=== PATIENT | female | born 1990 | race Caucasian/White ===

== ENCOUNTER 2020-05-16 00:18 | Outpatient (CLI) | payer OTHER, MEDICARE, SELFPAY ==
[2020-05-16 19:30] LABS: SARS-CoV-2 RNA PCR Negative
== END 2020-05-16 00:19 | disposition home or self-care (01) ==
LOC: ANHCOVIDDT 00:18
PROVIDERS: PCP Physician Assistant; Visit Provider Obstetrics & Gynecology
DX: Z01.812 Encounter for preprocedural laboratory examination (principal); Z20.828 Contact with and (suspected) exposure to other viral communicable diseases
CPT/HCPCS: 87635; C9803; U0003

== ENCOUNTER 2020-05-19 00:41 | Day surgery (SDC) | payer OTHER, MEDICARE, SELFPAY ==
[2020-05-06 13:29] VITALS: BMI 38.0
--- NOTE | 2020-05-18 09:53 | P.PNAN_ITS ---
Anes - Initial Pre Proc Eval Procedure: Operation Date: 05/19/20 07:30 Proposed Procedures p Laparoscopic Bilateral Tubal Sterilization with Fulguration - Yvette Rich MD Date/Time: 05/18/20 09:53 Surgeon: Yvette Rich MD Pre Op Diagnosis: female sterilization Patient Data Age: 29 Gender: F Height: 1.73 m Weight: 113.4 kg Allergies Allergy/AdvReac Type Severity Reaction Status Date / Time Penicillins Allergy Severe throat Verified 05/19/20 06:46 very scratchy/itchy, hives WATERMELON Allergy Severe Anaphylactic Uncoded 05/19/20 06:46 Shock Home Medications Medication Instructions Recorded Confirmed Type albuterol sulfate [ProAir HFA] 1 inh INHALATION QID PRN 05/06/20 05/19/20 History buprenorphine-naloxone [Zubsolv] 1 tablet SUBLINGUAL DAILY 05/06/20 05/19/20 History cholecalciferol (vitamin D3) 25 mcg PO DAILY 05/06/20 05/19/20 History [Vitamin D3] cyanocobalamin (vitamin B-12) 1,000 mcg PO DAILY 05/06/20 05/19/20 History [Vitamin B-12] levonorgestrel [Mirena] 1 device INTRAUTERINE ONCE 05/06/20 05/06/20 History lurasidone [Latuda] 20 mg PO HS 05/06/20 05/19/20 History multivitamin 1 tablet PO DAILY 05/06/20 05/19/20 History polyethylene glycol 3350 [Miralax] 17 g PO DAILY 05/06/20 05/19/20 History Patient hx anesthesia problems: none Family hx anesthesia problems: none [facility] [place] Past Medical History Medical History (Updated 05/19/20 @ 06:50 by Yovani Fisher DO) Anxiety Asthma Bipolar disorder Chronic, continuous use of opioids quit 2 years ago, on suboxone now Depression Seizure Social History Social History Smoking packs per day: 1 Smoking cigarettes per day: 20.0 Years smoked: 12 Smoking pack-years: 12.00 Tobacco type: e-cigarettes/vaping Additional smoking assessment comments: QUIT CIGARETTES 1 MONTH AGO, NOW VAPES Substance use: former Substance use type: heroin, painkillers and IV drugs Other substance usage details: USES MEDICAL MARIJUANA CURRENTLY Last use: 2 YEARS AGO Spiritual care concerns: No Anes - Eval Final PreProcedure Day of Procedure 05/18/20 09:53 Patient weight: obese Heart: regular rate and rhythm Lungs: clear to auscultation and normal air movement Airway: Mallampati scale class II Neurological: alert and oriented Last oral intake: >/= 8 hours ASA classification: III Emergent: no Anesthetic plan: proceed Anesthesia type and monitoring: general ETT and standard monitoring Informed Consent: The patient's anesthetic plan and its attendant risks and benefits were discussed with the patient/family/POA. Questions were solicited and answers provided to the satisfaction of the patient/family/POA.
[2020-05-19] VITALS (10 sets, daily range): BP systolic 111–154; BP diastolic 62–77; PULSE 51–63; RESP 13–22; TEMP 36.1–36.2; O2SAT 98–100
[2020-05-19] MEDS: ACETAMINOPHEN 500 MG TABLET 1000 MG PO (06:21)
[2020-05-19] MEDS: KETOROLAC 15 MG/ML VIAL (*BKC) IV PUSH (06:38)
[2020-05-19] MEDS: LACTATED RINGERS 1,000 ML 30 ML IV CONT (06:38)
--- NOTE | 2020-05-19 07:15 | WPDHPUPDATE1 ---
History and Physical Update Update Date/Time: 05/19/20 07:15 History and Physical has been reviewed, including an updated exam of the patient. There are NO changes in the patient's condition. Risks, benefits, and alternatives have been discussed and questions answered. Patient agrees to proceed with procedure.
[2020-05-19] MEDS: KETOROLAC 30 MG/ML VIAL (*BKC) 15 MG IV PUSH (07:57)
--- NOTE | 2020-05-19 08:09 | PM.PROC ---
Procedure Note - Detailed Date of procedure: 05/19/20 Pre-op diagnosis: female sterilization Post-op diagnosis: same Procedure performed: Laparoscopic bilateral tubal ligation Description of procedure: Patient was taken the operating room. She has prepped draped in the dorsal lithotomy position after induction of general anesthesia. A 5 mm abdominal incision was made in left upper quadrant of the abdomen with scalpel. A 5 mm trocars inserted the intra-abdominal cavity under direct visualization of the scope. Pneumoperitoneum was achieved. A 5 mm periumbilical incision was made using a scalpel on the abdominal scan. A 5 mm trocar was inserted the intra-abdominal cavity under visualization of the scope. The fallopian tube was grasped with the bipolar cautery in the ampullary region. It was completely desiccated in a 1.5 cm area of the fallopian tube. This was performed in identical fashion on the contralateral side. The instruments were withdrawn. The pneumoperitoneum was reduced. The trocars were removed. The skin was closed with subcuticular 4 Monocryl. This incisions were covered with Dermabond. The patient tolerated the procedure well. She was taken to recover room in stable condition. Anesthesia: GETA Surgeon: Yvette Rich MD Estimated blood loss (mL): 10 Drains: No Packing: No Pathology: none sent Complications: No immediate complications Condition: stable Disposition: PACU Findings: Normal female pelvic anatomy.
[2020-05-19] MEDS: ONDANSETRON INJ 4 MG/2 ML VIAL IV PUSH (08:28)
== END 2020-05-19 10:10 | disposition home or self-care (01) ==
PROVIDERS: PCP Physician Assistant; Visit Provider Obstetrics & Gynecology
PROC: (CPT 58671; principal; 2020-05-19 07:30)
DX: Z30.2 Encounter for sterilization (principal)
CPT/HCPCS: 58670; A9270; J0330; J1100; J1885; J2250; J2405; J2704; J3010; J7120

== ENCOUNTER 2021-02-10 11:22 | Outpatient (CLI) | payer OTHER, MEDICARE, SELFPAY ==
--- NOTE | ~2021-02-10 | XR_ITS ---
EXAMINATION: XR hip LT min 2V DATE: 02/10/2021 11:41 INDICATION: Left hip pain. TECHNIQUE: 2 views of left hip were obtained. COMPARISON: None. FINDINGS: Bone alignment is normal. No fracture. There is mild left hip osteoarthritis. IMPRESSION: 1. Mild left hip osteoarthritis. Reviewed, dictated and finalized at location A.
== END 2021-02-10 11:23 | disposition home or self-care (01) ==
LOC: CHSIMG 11:26
PROVIDERS: PCP Physician Assistant; Visit Provider Physician Assistant
DX: M25.552 Pain in left hip (principal)
CPT/HCPCS: 73502

== ENCOUNTER 2021-11-30 18:54 | Emergency (ER) | payer OTHER, MEDICARE, SELFPAY ==
[2021-11-30 19:05] VITALS: BP 138/73; PULSE 66; RESP 16; TEMP 36.6; O2SAT 97
--- NOTE | 2021-11-30 19:50 | ED.URI ---
HPI - URI/Sore Throat General Chief Complaint: Upper Respiratory Infection Stated Complaint: tastes bleach when coughing Time Seen by Provider: 11/30/21 18:56 Source: patient, RN notes reviewed and old records reviewed Mode of arrival: ambulatory Limitations: no limitations History of Present Illness MD elicited complaint: cough, sore throat and nasal congestion Onset (ago): day(s) (1) Consistency: constant Severity: mild Pain scale (0-10): 0 Able to tolerate fluids by mouth: Yes Exacerbating factors: nothing Relieving factors: OTC cold medicine Associated symptoms: nasal congestion, sore throat and shortness of breath Treatments prior to arrival: cold medicine Related Data Home Medications Medication Instructions Recorded Confirmed Latuda 20 mg PO HS 05/06/20 11/30/21 Mirena 1 device INTRAUTERINE ONCE 05/06/20 11/30/21 Zubsolv 1 tablet SUBLINGUAL DAILY 05/06/20 11/30/21 albuterol sulfate [ProAir HFA] 1 inh INHALATION QID PRN 05/06/20 11/30/21 Allergies Allergy/AdvReac Type Severity Reaction Status Date / Time Penicillins Allergy Severe throat Verified 11/30/21 19:22 very scratchy/itchy, hives WATERMELON Allergy Severe Anaphylactic Uncoded 05/19/20 06:46 Shock Review of Systems Review of Systems: All systems reviewed & are unremarkable except as noted in HPI and below PMFSH Past Medical History Medical History Anxiety Asthma Bipolar disorder Chronic, continuous use of opioids quit 2 years ago, on suboxone now Depression Seizure URI (upper respiratory infection) Social History Social History Smoking packs per day: 1 Smoking cigarettes per day: 20.0 Years smoked: 12 Smoking pack-years: 12.00 Tobacco type: e-cigarettes/vaping Additional smoking assessment comments: QUIT CIGARETTES 1 MONTH AGO, NOW VAPES Substance use: former Substance use type: heroin, painkillers and IV drugs Other substance usage details: USES MEDICAL MARIJUANA CURRENTLY Last use: 2 YEARS AGO Spiritual care concerns: No Exam Const: General: no acute distress and alert Nutritional Appearance: well nourished Orientation/consciousness: patient oriented x3 Limitations: no limitations HENMT: Head: normal to inspection Ears: external ears normal and EAC's normal General nose exam: Normal external nose present and Normal nares present Face and sinus: sinuses nontender Mouth: Yes moist mucous membranes Eyes: Conjunctivae: conjunctivae normal Pupils: Equal, round and reactive pupils present EOM: EOMs intact bilaterally Neck: Neck: normal visual inspection and no lymphadenopathy Chest: Chest palpation & inspection: normal inspection of the chest Resp: Effort & Inspection: normal respiratory effort Auscultation: rhonchi Cardio: Rate: regular rate Rhythm: regular rhythm GI: GI Palp: Yes Soft to palpation and No Tenderness to palpation present (GI) Auscultation: normal bowel sounds : General: Yes bladder normal to palpation and Yes no CVA tenderness Back/Spine/Pelvis: Back: no CVA tenderness Skin: General skin exam: normal color Rashes: no rashes Neuro: General: moves all extremities, no meningeal signs, no focal motor deficits and CN's II-XI intact bilaterally Extrem: General: normal to inspection and no pedal edema Psych: Appearance: grossly normal Mental Status: mental status grossly normal Affect: normal affect Thought content: Yes Normal thought content present Course Course Emergency Course: Pt was improved in the ED. Reevaluation(s) Reevaluation #1: VSS. Date: 11/30/21 Time: 19:16 Vital Signs Vital signs: Vital Signs Temperature 36.6 C 11/30/21 19:05 Pulse Rate 66 11/30/21 19:05 Respiratory Rate 16 11/30/21 19:05 Blood Pressure 138/73 11/30/21 19:05 Pulse Oximetry 97 11/30/21 19:05 Temperature 36.6 C 11/30/21 19:05 Puls
[2021-11-30] MEDS: guaiFENesin 12 HR 600 MG TABCR PO (20:11)
[2021-11-30 20:25] VITALS: BP 119/76; PULSE 78; RESP 14; O2SAT 97
== END 2021-11-30 20:32 | disposition home or self-care (01) ==
PROVIDERS: Emergency Provider Emergency Medicine; PCP Physician Assistant
DX: J06.9 Acute upper respiratory infection, unspecified (principal); J40 Bronchitis, not specified as acute or chronic
CPT/HCPCS: 99283; A9270

== ENCOUNTER 2022-07-26 09:55 | Outpatient (CLI) | payer OTHER, MEDICARE, SELFPAY ==
[2022-07-26 10:14] LABS: Basophils Absolute Auto 0.04 K/mm3 (0.00-0.10); Basophils Percent Auto 0.5 % (0.0-1.0); Eosinophils Absolute Auto 0.23 K/mm3 (0.02-0.50); Eosinophils Percent Auto 2.7 % (1.0-6.0); Hematocrit 41.6 % (35.0-49.0); Hemoglobin 14.4 g/dL (12.0-15.0); Immature Granulocyte Absolute 0.02 K/mm3 (0.00-0.00); Immature Granulocyte Percent A 0.2 % (0.0-0.0); Lymphocytes Percent Auto 31.3 % (18.0-42.0); Mean Corpuscular HGB Conc 34.6 g/dL (32.0-36.0); Mean Corpuscular Hemoglobin 31.2 pg (27.0-31.0); Mean Corpuscular Volume 90.2 fL (78.0-102.0); Mean Platelet Volume 9.8 fl (9.2-11.8); Monocytes Absolute Auto 0.44 K/mm3 (0.10-0.90); Monocytes Percent Auto 5.1 % (2.0-11.0); Neutrophils Absolute Auto 5.2 K/mm3 (1.7-7.2); Neutrophils Percent Auto 60.2 % (50.0-70.0); Platelet Count Result 318 K/mm3 (150-420); Red Blood Count 4.61 M/mm3 (4.20-5.40); Red Cell Distribution Width 11.9 % (11.6-14.4); White Blood Count 8.6 K/mm3 (4.8-10.8)
[2022-07-26 10:53] LABS: Alanine Aminotransferase 18 U/L (14-59); Albumin Level 4.4 g/dL (3.4-5.0); Alkaline Phosphatase 72 U/L (46-116); Anion Gap 8 mmol/L (8-16); Aspartate Amino Transferase 13 U/L (15-37); Bilirubin,Total 0.6 mg/dL (0.00-1.00); Blood Urea Nitrogen 16 mg/dL (7-18); Calcium 9.2 mg/dL (8.5-10.1); Carbon Dioxide 29 mmol/L (21-32); Chloride 104 mmol/L (98-108); Cholesterol 224 mg/dL (0-200); Estimated Glomerular Filt Rate > 60; Glucose 94 mg/dL (70-99); HDL Direct 47 mg/dL (40-60); LDL Cholesterol Calculated 155 mg/dL (<130); Osmolality Calculated 293 mOsm/kg (285-295); Potassium 4.5 mmol/L (3.5-5.1); Sodium 141 mmol/L (136-145); Thyroid Stimulating Hormone 1.57 uIU/mL (0.36-3.74); Total Protein 7.6 g/dL (6.4-8.2); Triglycerides 110 mg/dL (0-150)
== END 2022-07-26 09:56 | disposition home or self-care (01) ==
LOC: CHSLAB 09:58
PROVIDERS: PCP Physician Assistant; Visit Provider Nurse Practitioner
DX: E66.9 Obesity, unspecified (principal); Z13.1 Encounter for screening for diabetes mellitus; Z13.220 Encounter for screening for lipoid disorders; Z13.29 Encounter for screening for other suspected endocrine disorder; Z13.31 Encounter for screening for depression
CPT/HCPCS: 36415; 80053; 80061; 83036; 84443; 85025

== ENCOUNTER 2023-01-20 03:21 | Emergency (ER) | payer OTHER, MEDICARE, SELFPAY ==
[2023-01-20 03:28] VITALS: BP 144/86; PULSE 79; RESP 20; TEMP 36.5; O2SAT 100
[2023-01-20 03:34] VITALS: O2SAT 100
--- NOTE | 2023-01-20 03:53 | ED.GENADULT ---
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 Otherwise the patient is doing well has reproducible chest pain no audible wheezing no shortness of breath no fever chills no abdominal pain no nausea vomiting. Onset (ago): hour(s) Location: upper extremity Severity: mild Severity scale (1-10): 4 Related Data Home Medications Medication Instructions Recorded Confirmed albuterol sulfate 90 mcg/actuation 1 inh inhalation QID PRN Shortness 05/06/20 01/20/23 aerosol inhaler (ProAir HFA) Of Breath lurasidone 20 mg tablet (Latuda) 20 mg PO HS 05/06/20 01/20/23 lisdexamfetamine 30 mg capsule 30 mg PO DAILY 01/20/23 01/20/23 (Vyvanse) Allergies Allergy/AdvReac Type Severity Reaction Status Date / Time Penicillins Allergy Severe throat Verified 06/03/22 15:26 very scratchy/itchy, hives buspirone Allergy Intermediate Verified 06/03/22 15:26 WATERMELON Allergy Severe Anaphylactic Uncoded 06/03/22 15:26 Shock Review of Systems Review of Systems: All systems reviewed & are unremarkable except as noted in HPI and below PMFSH Past Medical History Medical History Anxiety Asthma Bipolar disorder Chronic, continuous use of opioids quit 2 years ago, on suboxone now Depression Seizure URI (upper respiratory infection) Family History Family History Mother Family history of mental disorder Depression Family history of migraine headaches Asthma Family history of alcoholism Family history of bipolar disorder Grandparent Family history of coronary artery disease Father Family history of obesity Hypertension Family history of alcoholism Social History Social History Smoking packs per day: 1 Smoking cigarettes per day: 20.0 Years smoked: 12 Smoking pack-years: 12.00 Tobacco type: e-cigarettes/vaping Second hand tobacco smoke exposure: No Additional smoking assessment comments: QUIT CIGARETTES 1 MONTH AGO, NOW VAPES Alcohol intake: current Substance use: former Substance use type: heroin, painkillers and IV drugs Other substance usage details: USES MEDICAL MARIJUANA CURRENTLY Last use: 2 YEARS AGO Spiritual care concerns: No Exam Const: General: cooperative, healthy appearing, comfortable, no acute distress and well developed HENMT: Head: normal to inspection Eyes: General: appearance normal, both eyes and all related structures Neck: Neck: normal visual inspection Chest: Chest/axillae images: 1. Reviewed usable chest discomfort with palpation and movement of her left shoulder. Resp: Effort & Inspection: normal respiratory effort and able to speak in complete sentences Auscultation: clear to auscultation bilaterally Cardio: Jugular venous distension: no JVD Palpation: normal PMI Rate: regular rate Rhythm: regular rhythm GI: Inspection: normal to inspection Back/Spine/Pelvis: Back: no CVA tenderness Skin: General skin exam: normal color and no rashes or lesions noted Neuro: General: oriented to person, oriented to place, oriented to time and patient oriented x3 Extrem: General: normal to inspection, full ROM and capillary refill normal Psyc
[2023-01-20] MEDS: KETOROLAC 10 MG TABLET PO (03:57)
[2023-01-20 04:12] VITALS: BP 138/74; PULSE 81; RESP 18; TEMP 36.6; O2SAT 99
== END 2023-01-20 04:14 | disposition home or self-care (01) ==
PROVIDERS: Emergency Provider Emergency Medicine; PCP Physician Assistant
DX: S46.912A Strain of unspecified muscle, fascia and tendon at shoulder and upper arm level, left arm, initial encounter (principal); F17.290 Nicotine dependence, other tobacco product, uncomplicated; X58.XXXA Exposure to other specified factors, initial encounter
CPT/HCPCS: 99283; A9270

== ENCOUNTER 2024-08-14 12:01 | Emergency (ER) | payer OTHER, MEDICARE, SELFPAY ==
--- NOTE | 2024-08-14 12:09 | ED_ITS ---
HPI - Abdominal Pain General Chief Complaint: Abdominal Pain Stated Complaint: LOWER RT ABD PAIN Time Seen by Provider: 08/14/24 12:04 Source: patient Mode of arrival: ambulatory Limitations: no limitations History of Present Illness HPI narrative: Patient is a 34-year-old female who presents with right lower abdominal pain that started last night. Reports it is worsening this morning. Denies any vomiting, constipation or diarrhea. Patient states when she touches the area pain worsens and spreads throughout abdomen. States the pain is so severe it makes her nauseous. Patient does have appendix and ovaries. Patient has history of tubal and cholecystectomy. Denies any fever or chills. Related Data Home Medications Medication Instructions Recorded Confirmed lurasidone 20 mg tablet (Latuda) 20 mg PO HS 05/06/20 08/14/24 fluoxetine 10 mg capsule 10 mg PO DAILY 05/28/24 08/14/24 lisdexamfetamine 70 mg capsule 70 mg PO DAILY 05/28/24 08/14/24 (Vyvanse) Allergies Allergy/AdvReac Type Severity Reaction Status Date / Time Penicillins Allergy Severe throat Verified 08/14/24 12:13 very scratchy/itchy, hives buspirone Allergy Intermediate Unknown Verified 08/14/24 12:13 metoclopramide [From Reglan] AdvReac Mild Weird Verified 08/14/24 12:13 feeling from it WATERMELON Allergy Severe Anaphylactic Uncoded 08/14/24 12:13 Shock Review of Systems Review of Systems: All systems reviewed & are unremarkable except as noted in HPI and below Constitutional: Constitutional: Denies body ache(s), Denies chills, Denies fatigue, Denies fever(s), Denies headache(s), Denies malaise and Denies weakness Eyes: Eyes: Denies blurry vision, Denies irritation and Denies loss of vision ENT: Denies otalgia, Denies headache(s), Denies nasal discharge, Denies sinus pain and Denies sore throat Cardiovascular: Cardiovascular: Denies chest pain, Denies irregular heart rhythm and Denies dyspnea Respiratory: Respiratory: Denies dyspnea Gastrointestinal: Gastrointestinal: Reports abdominal pain, Denies melena, Denies hematochezia, Denies diarrhea, Reports nausea and Denies vomiting Musculoskeletal: Musculoskeletal: Denies back pain, Denies myalgias and Denies arthralgias Integumentary/Breasts: Skin/Breast: Denies pruritus and Denies rash Neurologic: Denies headache(s), Denies loss of vision and Denies weakness Psychiatric: Psychiatric: Reports no additional psychiatric complaints Endocrine: Endocrine: Denies fatigue PMFSH Past Medical History Medical History Anxiety Asthma Bipolar disorder Depression Hx of opioid abuse Quit in 2018 Seizure URI (upper respiratory infection) Surgical History Surgical History delivery delivered FH: cholecystectomy H/O tubal ligation Family History Family History Mother Family history of mental disorder Depression Family history of migraine headaches Asthma Family history of alcoholism Family history of bipolar disorder Grandparent Family history of coronary artery disease Father Family history of obesity Hypertension Family history of alcoholism Social History Social History Social History: Caffeine weekly soda 1 Years smoked: 12 Smoking status: Former smoker Tobacco type: e-cigarettes/vaping Second hand tobacco smoke exposure: No Smoking end date: 09/24/23 Additional smoking assessment comments: QUIT CIGARETTES 1 MONTH AGO, NOW VAPES Alcohol intake: former Substance use: former Substance use type: marijuana Other substance usage details: USES MEDICAL MARIJUANA CURRENTLY Last use: 2 YEARS AGO Do You Feel Safe in your Home?: No Lack of Transportation: No Lack of Food: Sometimes True Current Housing: I Have Housing Concerned About Future Housing: No Difficulty Paying Gas/Electric Bills: No Difficulty Paying for Meds: No Currently Unemployed: No Difficulty w/ Childcare or Family Care: No Living arrangements: with family Occupation/Education: occupation Gender identity (if verbalized by the patient): Female Sexual Orientation (if Verbalized by the Patient): Straight or Heterosexual Spiritual care concerns: No Agree to blood products: Yes Comments At time of signature, agree with nursing past medical, surgical, social and family history. There is no relevant family history pertinent to the presenting complaint. Exam Const: General: cooperative, healthy appearing, comfortable, no acute distress and well nourished Nutritional Appearance: well nourished Orientation/consciousness: patient oriented x3 Limitations: no limitations HENMT: Head: normal to inspection, normocephalic and atraumatic Ears: hearing grossly normal bilaterally and external ears normal Face/Nose/Sinus: Normal external nose present, normal facial exam and face symmetric Face and sinus: normal facial exam and face symmetric Mouth: Yes lip normal Eyes: General: appearance normal, both eyes and all related structures Alignment and Position: alignment normal and position normal Periorbital: periorbital findings normal Eyelids: eyelids normal Pupils: Equal, round and reactive pupils present EOM: EOMs intact bilaterally Neck: Neck: normal visual inspection, full ROM and supple Chest: Chest palpation & inspection: normal inspection of the chest Resp: Effort & Inspection: normal respiratory effort and able to speak in complete sentences Auscultation: clear to auscultation bilaterally Cardio: Rate: regular rate Rhythm: regular rhythm Heart sounds: S1 normal heart sound present and S2 normal heart sound present GI: Inspection: normal to inspection and Pannus present GI Palp: Yes abdominal tenderness, Yes Soft to palpation, Yes Tenderness to palpation present (GI) (Right lower quadrant), Yes Guarding due to palpation present (GI), Yes Rebound tenderness present (Right lower quadrant) and Yes Other GI palpation findings present (Positive McBurney sign and Maximino's sign) Auscultation: normal bowel sounds Rectal Exam: deferred Skin: General skin exam: normal color and no rashes or lesions noted Neuro: General: patient oriented x3 and moves all extremities Cranial nerves: Yes Equal, round and reactive pupils present Speech: normal speech Gait exam (Neuro): Normal gait present Extrem: General: normal to inspection, full ROM and no edema Psych: Appearance: grossly normal and well kempt Mental Status: mental status grossly normal Speech and movement: Normal speech and movement present Affect: normal affect Attitude: cooperative Thought process: Normal thought process present Course Course Emergency Course: Patient being transferred to [place] the emergency department for further evaluation and treatment of probable appendicitis Portions of this record may have been created with voice recognition software Level of Care: Express Care Visit Vital Signs Vital signs: Reviewed Transfer Transfered to: [place] Transportation: Other (Private auto) Transfer rationale: Right lower quadrant Abdominal pain and nausea Accepting physician: Kar CLARK MDM - Abdominal Pain MDM Narrative Medical decision making narrative: Patient being transferred to [place] emergency department for further evaluation of abdominal pain to rule out appendicitis for treatment of appendicitis. Differential Diagnosis Differential diagnosis: Likely abdominal pain, acute appendicitis, divertic ulitis, endometriosis and small bowel obstruction Medical Records Attestation: I reviewed the patient's medical records. Discharge Plan Discharge Clinical Impression: Abdominal pain Qualifiers: Abdominal location: right lower quadrant Qualified Code(s): R10.31 - Right lower quadrant pain Patient Disposition: Acute Care Hospital Condition: Stable Prescriptions: No Action fluoxetine 10 mg capsule 10 mg PO DAILY Wegovy 2.4 mg/0.75 mL pen injector 2.4 mg subcut WEEKLY Qty: 9 1RF lisdexamfetamine [Vyvanse] 70 mg capsule 70 mg PO DAILY lurasidone [Latuda] 20 mg tablet 20 mg PO HS Follow-up/Referrals: UNKNOWN,DOCTOR [Non-Staff] - Time of Disposition: 12:41
[2024-08-14 12:13] VITALS: BP 143/86; PULSE 113; RESP 16; TEMP 36; O2SAT 100
[2024-08-14 12:15] VITALS: BP 143/86; PULSE 113; RESP 16; TEMP 36; O2SAT 100
[2024-08-14 12:21] LABS: EDUAAPPEAR Clear; EDUABILI 1+ (Negative); EDUABLOOD Trace (Negative); EDUACOLOR1 Dark; EDUAGLUCOSE Negative (Negative); EDUAKETONE Negative (Negative); EDUALEUKO Negative (Negative); EDUANITRATE Negative (Negative); EDUAPROTEIN 1+ (Negative); EDUAUROBILI 0.2
== END 2024-08-14 12:30 | disposition short-term general hospital (02) ==
PROVIDERS: Emergency Provider Nurse Practitioner Family; PCP Nurse Practitioner
DX: R10.31 Right lower quadrant pain (principal); F17.290 Nicotine dependence, other tobacco product, uncomplicated; J45.909 Unspecified asthma, uncomplicated; F31.9 Bipolar disorder, unspecified; F41.9 Anxiety disorder, unspecified
CPT/HCPCS: 81003; 99212; G0463

== ENCOUNTER 2024-08-14 12:46 | Emergency (ER) | payer OTHER, MEDICARE, SELFPAY ==
--- NOTE | ~2024-08-14 | CT_ITS ---
EXAMINATION: CT abdomen pelvis w con DATE: 08/14/2024 17:30 INDICATION: Right lower quadrant abdominal pain. TECHNIQUE: Computed tomography (CT) of the abdomen and pelvis was performed with 100 mL Omnipaque 350 intravenous contrast. Automated exposure control and iterative reconstruction technique were employe d. The dose-length product was 1493.17 mGy-cm. COMPARISON: CT abdomen and pelvis 12/04/2018 FINDINGS: The visualized portions of the lung bases demonstrate minimal atelectasis. No pleural effus ion. The heart size is normal. No pericardial effusion. The liver and spleen are normal. There are ch anges of cholecystectomy. The pancreas, adrenal glands, and kidneys are normal. There are no dilated loops of bowel. The appendix is normal. There is a supraumbilical ventral hernia containing fat. Ther e are no pathologically enlarged lymph nodes. There is no free intraperitoneal fluid. There is mild t horacic and lumbar spondylosis. IMPRESSION: 1. Supraumbilical ventral hernia containing fat. Reviewed, dictated and finalized at location A. ANT LEADER
--- NOTE | ~2024-08-14 | US_ITS ---
EXAMINATION: US transvaginal DATE: 08/14/2024 18:24 INDICATION: Right lower quadrant abdominal pain. TECHNIQUE: Multiple transabdominal and transvaginal sonographic images of the pelvis were obtained. COMPARISON: CT abdomen and pelvis 08/14/24 FINDINGS: TRANSABDOMINAL ULTRASOUND: The uterus measures 8.8 x 3.6 x 5.0 cm. There is no free fluid in the pelvis. TRANSVAGINAL ULTRASOUND: The endometrial complex measures 9 mm in thickness. There are nabothian cysts in the cervix. The righ t ovary measures 4.4 x 2.2 x 2.7 cm. The left ovary measures 2.3 x 1.7 x 2.1 cm. There is normal vasc ular flow in the ovaries. IMPRESSION: 1. No etiology for the patient's symptoms. Reviewed, dictated and finalized at location A. MA CUTTING MACHINE OPERATOR
[2024-08-14 12:52] VITALS: BP 139/79; PULSE 97; RESP 16; TEMP 36.4; O2SAT 97
[2024-08-14 14:35] LABS: Basophils Absolute Auto 0.1 K/mm3 (0.0-0.1); Basophils Percent Auto 0.5 % (0.2-1.2); Eosinophils Absolute Auto 0.2 K/mm3 (0-0.3); Eosinophils Percent Auto 1.2 % (0-4.4); Hematocrit 44.6 % (37.0-47.0); Immature Granulocyte Absolute 0.04 K/mm3 (0.00-0.031); Immature Granulocyte Percent A 0.3 % (0-0.5); Lymphocytes Absolute Auto 2.08 K/mm3 (0.9-3.2); Mean Corpuscular HGB Conc 33.6 g/dl (32-36); Mean Corpuscular Hemoglobin 30.7 pg (26-34); Mean Corpuscular Volume 91.4 fl (80-100); Mean Platelet Volume 9.7 fl (7.4-10.4); Monocytes Absolute Auto 0.5 K/mm3 (0.1-0.6); Monocytes Percent Auto 4.4 % (2.6-8.5); Neutrophils Absolute Auto 9.4 K/mm3 (1.3-6.7); Neutrophils Percent Auto 76.6 % (45.5-73.1); Platelet Count Result 307 k/mm3 (150-375); Red Blood Count 4.88 M/mm3 (4.2-5.4); Red Cell Distribution Width 12.1 % (11.5-14.5); White Blood Count 12.2 K/mm3 (4.5-10.0)
[2024-08-14 14:45] LABS: Alanine Aminotransferase 13 U/L (6-35); Albumin Level 4.9 g/dL (3.5-5.1); Alkaline Phosphatase 70 U/L (38-126); Anion Gap 9 mmol/L (4-12); Aspartate Amino Transferase 18 U/L (14-36); Bilirubin,Total 1.2 mg/dL (0.2-1.3); Blood Urea Nitrogen 12 mg/dL (7-17); Calcium 9.6 mg/dL (8.4-10.2); Carbon Dioxide 26 mmol/L (22-30); Chloride 102 mmol/L (98-107); Estimated CRCL calculation 103 ml/min; Estimated Glomerular Filt Rate > 60; Glucose 92 mg/dL (65-110); Lipase 40 U/L (23-300); Potassium 3.9 mmol/L (3.4-5.0); Sodium 137 mmol/L (137-145)
[2024-08-14 15:31] LABS: Add Urine Microscopic? NO; Appearance Urine Clear (Clear); Bilirubin Urine Negative (Negative); Blood Urine Negative (Negative); Color Urine Yellow (Yellow); Glucose Urine UA Negative (Negative); Ketones Urine Trace mg/dL (Negative); Leukocyte Esterase Ur Negative LEU/UL (Negative); Nitrate Urine Negative (Negative); Protein Urine Negative (Negative); Specific Grav Ur 1.023 (1.001-1.035); Urobilinogen Urine 0.2 mg/dL (<2.0)
--- NOTE | 2024-08-14 15:40 | ED.ABDPAIN ---
HPI - Abdominal Pain General Chief Complaint: Abdominal Pain <Edie Karimi APRN - Last Filed: 08/14/24 15:43> Stated Complaint: abd pain <Edie Karimi APRN - Last Filed: 08/14/24 15:43> Time Seen by Provider: 08/14/24 15:35 <Edie Karimi APRN - Last Filed: 08/14/24 15:43> Patient is a 34-year-old female who presents to the ER with right lower quadrant abdominal pain. She reports the pain started last night. Patient reports she does not have a gallbladder but still has her appendix. Patient endorses emesis this morning. She also reports the pain is worse when she presses on her belly button. Patient reports she has a significant history of mental health illness but it is well controlled. She also reports that she has been sober for 6 years. patient denies chest pain, shortness of breath, fevers. <Edie Karimi APRN - Last Filed: 08/14/24 15:43> Related Data Home Medications: Home Medications Medication Instructions Recorded Confirmed lurasidone 20 mg tablet (Latuda) 20 mg PO HS 05/06/20 08/14/24 fluoxetine 10 mg capsule 10 mg PO DAILY 05/28/24 08/14/24 lisdexamfetamine 70 mg capsule 70 mg PO DAILY 05/28/24 08/14/24 (Vyvanse) <Edie Karimi APRN - Last Filed: 08/14/24 15:43> Allergies/Adverse Reactions: Allergies Allergy/AdvReac Type Severity Reaction Status Date / Time Penicillins Allergy Severe throat Verified 08/14/24 12:13 very scratchy/itchy, hives buspirone Allergy Intermediate Unknown Verified 08/14/24 12:13 metoclopramide [From Reglan] AdvReac Mild Weird Verified 08/14/24 12:13 feeling from it WATERMELON Allergy Severe Anaphylactic Uncoded 08/14/24 12:13 Shock <Edie Karimi APRN - Last Filed: 08/14/24 15:43> Review of Systems Review of Systems: All systems reviewed & are unremarkable except as noted in HPI and below <Blayne Lakhani MD - Last Filed: 08/14/24 21:43> FOR[facility]LY [facility] Past Medical History Medical History: Medical History Anxiety Asthma Bipolar disorder Depression Hx of opioid abuse Quit in 2018 Seizure URI (upper respiratory infection) <Edie Karimi APRN - Last Filed: 08/14/24 15:43> Surgical History Surgical History: Surgical History delivery delivered FH: cholecystectomy H/O tubal ligation <Edie Karimi APRN - Last Filed: 08/14/24 15:43> Family History Family History: Family History Mother Family history of mental disorder Depression Family history of migraine headaches Asthma Family history of alcoholism Family history of bipolar disorder Grandparent Family history of coronary artery disease Father Family history of obesity Hypertension Family history of alcoholism <Edie Karimi APRN - Last Filed: 08/14/24 15:43> Social History Social History: Social History Social History: Caffeine weekly soda 1 Years smoked: 12 Smoking status: Former smoker Tobacco type: e-cigarettes/vaping Second hand tobacco smoke exposure: No Smoking end date: 09/24/23 Additional smoking assessment comments: QUIT CIGARETTES 1 MONTH AGO, NOW VAPES Alcohol intake: former Substance use: former Substance use type: marijuana Other substance usage details: USES MEDICAL MARIJUANA CURRENTLY Last use: 2 YEARS AGO Do You Feel Safe in your Home?: No Lack of Transportation: No Lack of Food: Sometimes True Current Housing: I Have Housing Concerned About Future Housing: No Difficulty Paying Gas/Electric Bills: No Difficulty Paying for Meds: No Currently Unemployed: No Difficulty w/ Childcare or Family Care: No Living arrangements: with family Occupation/Education: occupation Gender identity (if verbalized by the patient): Female Sexual Orientation (if Verbalized by the Patient): Straight or Heterosexual Spiritual care concerns: No Agree to blood products: Yes <Edie Karimi APRN - Last Filed: 08/14/24 15:43> Exam Narrative: APPEARANCE: Well appearing, no pain, no distress, well-nourished. HEAD: normocephalic, atraumatic. EYES: PERRLA/EOMI, conjunctivae clear. NOSE: Normal no drainage EARS:TMS clear with good light reflex. THROAT: Pharynx clear, no exudate. NECK: Supple. No adenopathy, no masses. RESPIRATORY: Airway patent, respirations nonlabored. Clear to auscultation bilaterally, no rales, rhonchi, wheezing. CARDIOVASCULAR: Regular rate and rhythm without murmurs rubs or gallops. ABDOMINAL: Soft, nontender, nondistended, normal bowel sounds MUSCULOSKELETAL: Moves all extremities. Strength/ROM intact, No edema, No calf tenderness. NEURO: Alert. Cranial nerves II through XII intact. Grossly intact SKIN: Warm, dry. Normal Color <Blayne Lakhani MD - Last Filed: 08/14/24 21:43> Course Vital Signs Vital signs: Vital Signs Temperature 97.6 F 08/14/24 12:52 Pulse Rate 97 08/14/24 12:52 Respiratory Rate 16 08/14/24 12:52 Blood Pressure 139/79 08/14/24 12:52 Pulse Oximetry 97 08/14/24 12:52 Oxygen Delivery Room Air 08/14/24 12:52 Temperature 98.1 F 08/14/24 18:43 Pulse Rate 90 08/14/24 18:43 Respiratory Rate 15 08/14/24 18:43 Blood Pressure 141/75 H 08/14/24 18:43 Pulse Oximetry 99 08/14/24 18:43 Oxygen Delivery Room Air 08/14/24 16:52 <Edie Karimi APRN - Last Filed: 08/14/24 15:43> Vital Signs Temperature 97.6 F 08/14/24 12:52 Pulse Rate 97 08/14/24 12:52 Respiratory Rate 16 08/14/24 12:52 Blood Pressure 139/79 08/14/24 12:52 Pulse Oximetry 97 08/14/24 12:52 Oxygen Delivery Room Air 08/14/24 12:52 Temperature 98.1 F 08/14/24 18:43 Pulse Rate 90 08/14/24 18:43 Respiratory Rate 15 08/14/24 18:43 Blood Pressure 141/75 H 08/14/24 18:43 Pulse Oximetry 99 08/14/24 18:43 Oxygen Delivery Room Air 08/14/24 16:52 <Blayne Lakhani MD - Last Filed: 08/14/24 21:43> MDM - Abdominal Pain MDM Narrative Medical decision making narrative: 34-year-old female presented emergency department for evaluation for right lower quadrant pain. Patient is afebrile but does have a leukocytosis of 12.2 and hemoglobin of 15.0. No acute abnormalities on the patient's CMP patient does have a negative lipase. UA was negative for infection negative for hematuria. CT scan was ordered due to the patient having right lower quadrant pain with Rovsing sign. CT scan was negative for appendicitis. Patient does have a prior history of ovarian cysts so ultrasound was ordered and no evidence of ovarian cyst ovarian torsion was noted. Patient had declined any medications for pain control. Patient was updated results of the workup. Patient was comfortable the plan for discharge and close follow-up with her primary care physician. All questions were addressed. <Blayne Lakhani MD - Last Filed: 08/14/24 21:43> Differential Diagnosis Differential diagnosis: Likely abdominal pain, acute appendicitis, calculus of kidney, constipation, diverticulitis, endometriosis, gastroenteritis, small bowel obstruction and other <Blayne Lakhani MD - Last Filed: 08/14/24 21:43> Lab Data Attestation: I reviewed the patient's lab results. <Blayne Lakhani MD - Last Filed: 08/14/24 21:43> Result diagrams: 08/14/24 14:28 08/14/24 14:28 <Edie Karimi APRN - Last Filed: 08/14/24 15:43> Labs: Lab Results 08/14/24 08/14/24 08/14/24 Range/Units 14:28 15:14 15:30 WBC 12.2 H (4.5-10.0) K/mm3 RBC 4.88 (4.2-5.4) M/mm3 Hgb 15.0 (12.0-15.0) g/dL Hct 44.6 (37.0-47.0) % MCV 91.4 (80-100) fl MCH 30.7 (26-34) pg MCHC 33.6 (32-36) g/dl RDW 12.1 (11.5-14.5) % Plt Count 307 (150-375) k/mm3 MPV 9.7 (7.4-10.4) fl Immature Gran % (Auto) 0.3 (0-0.5) % Neut % (Auto) 76.6 H (45.5-73.1) % Lymph % (Auto) 17.0 L (18.3-44.2) % [place] % (Auto) 4.4 (2.6-8.5) % Eos % (Auto) 1.2 (0-4.4) % Baso % (Auto) 0.5 (0.2-1.2) % Lymph # (Auto) 2.08 (0.9-3.2) K/mm3 [place] # (Auto) 0.5 (0.1-0.6) K/mm3 Eos # (Auto) 0.2 (0-0.3) K/mm3 Baso # (Auto) 0.1 (0.0-0.1) K/mm3 Abs Immat Gran (auto) 0.04 H (0.00-0.031) K/mm3 Absolute Neuts (auto) 9.4 H (1.3-6.7) K/mm3 Absolute Nucleated RBC 0.000 (0.0-0.012) K/mm3 Nucleated RBC % 0.0 (0.0-0.2) % Sodium 137 (137-145) mmol/L Potassium 3.9 (3.4-5.0) mmol/L Chloride 102 (98-107) mmol/L Carbon Dioxide 26 (22-30) mmol/L Anion Gap 9 (4-12) mmol/L BUN 12 (7-17) mg/dL Creatinine 0.90 (0.7-1.0) mg/dL Estim Creat Clear Calc 103 ml/min Estimated GFR > 60 (59 - ) Glucose 92 (65-110) mg/dL Calcium 9.6 (8.4-10.2) mg/dL Total Bilirubin 1.2 (0.2-1.3) mg/dL AST 18 (14-36) U/L ALT 13 (6-35) U/L Alkaline Phosphatase 70 (38-126) U/L Total Protein 8.0 (6.3-8.2) g/dL Albumin 4.9 (3.5-5.1) g/dL Lipase 40 (23-300) U/L Urine Color Yellow (Yellow) Urine Appearance Clear (Clear) Urine pH 6.0 (5.0-9.0) Ur Specific [place] 1.023 (1.001-1.035) Urine Protein Negative (Negative) mg/dL Urine Glucose (UA) Negative (Negative) mg/dL Urine Ketones Trace H (Negative) mg/dL Ur Blood (Man) Negative (Negative) Urine Nitrate Negative (Negative) Urine Bilirubin Negative (Negative) Urine Urobilinogen 0.2 (<2.0) mg/dL Leukocyte Esterase Rfl Negative (Negative) KRYSTA/UL POC Urine HCG, Qual Negative (Negative) <Edie Karimi, RUBY SOFTWARE DEVELOPER - Last Filed: 08/14/24 15:43> Lab Results 08/14/24 08/14/24 08/14/24 Range/Units 14:28 15:14 15:30 WBC 12.2 H (4.5-10.0) K/mm3 RBC 4.88 (4.2-5.4) M/mm3 Hgb 15.0 (12.0-15.0) g/dL Hct 44.6 (37.0-47.0) % MCV 91.4 (80-100) fl MCH 30.7 (26-34) pg MCHC 33.6 (32-36) g/dl RDW 12.1 (11.5-14.5) % Plt Count 307 (150-375) k/mm3 MPV 9.7 (7.4-10.4) fl Immature Gran % (Auto) 0.3 (0-0.5) % Neut % (Auto) 76.6 H (45.5-73.1) % Lymph % (Auto) 17.0 L (18.3-44.2) % [place] % (Auto) 4.4 (2.6-8.5) % Eos % (Auto) 1.2 (0-4.4) % Baso % (Auto) 0.5 (0.2-1.2) % Lymph # (Auto) 2.08 (0.9-3.2) K/mm3 [place] # (Auto) 0.5 (0.1-0.6) K/mm3 Eos # (Auto) 0.2 (0-0.3) K/mm3 Baso # (Auto) 0.1 (0.0-0.1) K/mm3 Abs Immat Gran (auto) 0.04 H (0.00-0.031) K/mm3 Absolute Neuts (auto) 9.4 H (1.3-6.7) K/mm3 Absolute Nucleated RBC 0.000 (0.0-0.012) K/mm3 Nucleated RBC % 0.0 (0.0-0.2) % Sodium 137 (137-145) mmol/L Potassium 3.9 (3.4-5.0) mmol/L Chloride 102 (98-107) mmol/L Carbon Dioxide 26 (22-30) mmol/L Anion Gap 9 (4-12) mmol/L BUN 12 (7-17) mg/dL Creatinine 0.90 (0.7-1.0) mg/dL Estim Creat Clear Calc 103 ml/min Estimated GFR > 60 (59 - ) Glucose 92 (65-110) mg/dL Calcium 9.6 (8.4-10.2) mg/dL Total Bilirubin 1.2 (0.2-1.3) mg/dL AST 18 (14-36) U/L ALT 13 (6-35) U/L Alkaline Phosphatase 70 (38-126) U/L Total Protein 8.0 (6.3-8.2) g/dL Albumin 4.9 (3.5-5.1) g/dL Lipase 40 (23-300) U/L Urine Color Yellow (Yellow) Urine Appearance Clear (Clear) Urine pH 6.0 (5.0-9.0) Ur Specific [place] 1.023 (1.001-1.035) Urine Protein Negative (Negative) mg/dL Urine Glucose (UA) Negative (Negative) mg/dL Urine Ketones Trace H (Negative) mg/dL Ur Blood (Man) Negative (Negative) Urine Nitrate Negative (Negative) Urine Bilirubin Negative (Negative) Urine Urobilinogen 0.2 (<2.0) mg/dL Leukocyte Esterase Rfl Negative (Negative) KRYSTA/UL POC Urine HCG, Qual Negative (Negative) <Blayne Lakhani MD - Last Filed: 08/14/24 21:43> Imaging Data Radiologist's impression: ITS Impressions Abdomen/Pelvis CT 08/14/24 17:32 IMPRESSION: 1. Supraumbilical ventral hernia containing fat. Transvaginal US 08/14/24 18:26 IMPRESSION: 1. No etiology for the patient's symptoms. <Edie Karimi APRN - Last Filed: 08/14/24 15:43> ITS Impressions Abdomen/Pelvis CT 08/14/24 17:32 IMPRESSION: 1. Supraumbilical ventral hernia containing fat. Transvaginal US 08/14/24 18:26 IMPRESSION: 1. No etiology for the patient's symptoms. <Blayne Lakhani MD - Last Filed: 08/14/24 21:43> Discharge Plan Discharge Clinical Impression: Abdominal pain <Edie Karimi APRN - Last Filed: 08/14/24 15:43> Patient Disposition: Home, Self-Care <Edie Karimi APRN - Last Filed: 08/14/24 15:43> Condition: Stable <Edie Karimi APRN - Last Filed: 08/14/24 15:43> Instructions: Antibiotic Form, Abdominal Pain (ED) <Edie Karimi APRN - Last Filed: 08/14/24 15:43> Additional Instructions: Tylenol and ibuprofen for pain control. Have close follow-up with your primary care physician. If you have any worsening symptoms then please call or return to the emergency department. <Edie Karimi APRN - Last Filed: 08/14/24 15:43> Prescriptions: No Action fluoxetine 10 mg capsule 10 mg PO DAILY Wegovy 2.4 mg/0.75 mL pen injector 2.4 mg subcut WEEKLY Qty: 9 1RF lisdexamfetamine [Vyvanse] 70 mg capsule 70 mg PO DAILY lurasidone [Latuda] 20 mg tablet 20 mg PO HS <Edie Karimi APRN - Last Filed: 08/14/24 15:43> Follow-up/Referrals: Michaela Smith, [employer] TAMPING MACHINE OPERATOR [Primary Care Provider] - <Edie Karimi APRN - Last Filed: 08/14/24 15:43>
[2024-08-14 16:35] LABS: BEDSIDEPREGUCG Negative (Negative)
[2024-08-14 16:52] VITALS: BP 171/91; PULSE 98; RESP 16; TEMP 37.1; O2SAT 100
--- NOTE | 2024-08-14 18:03 | PC.NURSE ---
Patient in US
[2024-08-14] MEDS: SODIUM CHLORIDE 0.9% IV 1,000 ML 999 ML IV CONT (18:14)
[2024-08-14 18:43] VITALS: BP 141/75; PULSE 90; RESP 15; TEMP 36.7; O2SAT 99
== END 2024-08-14 18:44 | disposition home or self-care (01) ==
PROVIDERS: Emergency Medicine; Emergency Provider Emergency Medicine; PCP Nurse Practitioner
DX: R10.31 Right lower quadrant pain (principal); F41.9 Anxiety disorder, unspecified; J45.909 Unspecified asthma, uncomplicated; F32.A Depression, unspecified
CPT/HCPCS: 36415; 74177; 76830; 80053; 81003; 81025; 83690; 85025; 99284; J7030; Q9967

== ENCOUNTER 2025-04-26 17:30 | Emergency (ER) | payer OTHER, MEDICARE, SELFPAY ==
[2025-04-26 17:30] VITALS: BP 154/83; PULSE 88; RESP 16; TEMP 36.6; O2SAT 99
--- OUTSIDE RECORDS SUMMARY | 2025-04-26 17:34 | XMS_ITS | Clinical Summary ---
Author Organization [facility] Address [address] [place] [address] Care Team Providers Care Community Relations Representative Name Role Phone Unavailable Primary Care Provider Unavailabl e Source Comments [facility],non-owned Affiliates and Associated Physician Practices is amultiple site organization consisting of ambulatory clinics and hospital sitesin [place], [place], [place] and [place]. This disclosure is being madepursuant to the Care Everywhere program and may not contain all information available regarding this patient. Last updated 18.[facility] Allergies Active Allergy Reactions Criticality Noted Date Comments Nsaids Unknown 01/05/2017 Penicillins 01/05/2017 Medications * Be aware that medications may not be up to date on this document. Alwaysverify current medications with the patient. lurasidone (LATUDA) 40 MG tablet Take 40 mg by mouth daily with breakfast Active topiramate (TOPAMAX) 200 MG tablet Take 200 mg by mouth 2 times daily Active LamoTRIgine (LAMICTAL PO) Take 50 mg by mouth Active haloperidol (HALDOL) 2 MG tablet Take 2 mg by mouth at bedtime Active clomiPRAMINE (ANAFRANIL) 50 MG capsule Take 100 mg by mouth at bedtime Active diazePAM (VALIUM) 10 MG tablet Take 10 mg by mouth 4 times daily Active raNITIdine (ZANTAC) 150 MG capsule Take 150 mg by mouth 2 times daily Active Social History Tobacco Use Types Packs/Day Years Used Date Smoking Tobacco: Every Day Cigarettes Alcohol Use Standard Drinks/Week Comments No 0 (1 standard drink = 0.6 oz pur e alcohol) Comments No Sex and Gender Information Value Date Recorded Sex Assigned at Not on file Legal Sex Female 7:36 AM CDT Gender Identity Not on file Sexual Orientation Not on file Last Filed Vital Signs Vital Sign Reading Time Taken Comments Blood Pressure 122/66 01/05/2017 10:00 AM CDT Pulse 79 01/05/2017 10:00 AM CDT Temperature 36.1 C (96.9 F) 01/05/2017 8:52 AM CDT Respiratory Rate 21 01/05/2017 10:00 AM CDT Oxygen Saturation 100% 01/05/2017 10:00 AM CDT Inhaled Oxygen Concentration - - Weight 140.6 kg (310 lb) 01/05/2017 8:52 AM CDT Height 175.3 cm (5' 9) 01/05/2017 8:52 AM CDT Body Mass Index 45.78 01/05/2017 8:52 AM CDT Plan of Treatment Health Maintenance Due Date Last Done Comments HIV SCREENING 2004 HEPATITIS C SCREENING 07/22/2007 DTAP/TDAP/TD VACCINES (1 - Tdap) 2008 HEPATITIS B VACCINE (1 of 3 - 19+ 3-dose series) 2008 PNEUMOCOCCAL VACCINE (1 of 2 - PCV) 2008 HPV VACCINE (1 - 3-dose SCDM series) 2016 COVID-19 VACCINE (1 - 2023-2 5 season) 2024 DEPRESSION SCREENING 09/25/2024 INFLUENZA VACCINE (#1) 2025 ZOSTER VACCINE (1 of 2) 2039 HIB VACCINE Aged Out No longer eligi ble based on patient's age to complete this topic MENINGOCOCCAL (Group B) VACC INE SHARED DECISION-MAKING Aged Out No longer eligibl e based on patient's age to complete this topic MENINGOCOCCAL GROUPS A/C/Y/W VACCINE Aged Out No longer eligible b ased on patient's age to complete this topic Insurance MEDICAID - [place]
--- NOTE | 2025-04-26 17:35 | ED_ITS ---
HPI - Skin/Abscess/Foreign Bdy General Chief complaint: Skin/Abscess/Foreign Body Stated complaint: rash Source: patient Mode of arrival: ambulatory Limitations: no limitations History of Present Illness HPI narrative: 34-year-old female with a history of asthma, anxiety/depression, bipolar disorder, seizure disorder presents to the ED with -- erythematous rash on both forearms with small blisters. Every year the patient has similar rash every summer with exposure to sunlight. no breakdown the skin. -- Generalized itching -- nasal congestion the patient has a history of Raynaud's and malar rash. patient is not on any new medication. complaint: rash Onset (ago): day(s) Tetanus up to date: yes Location: L hand and R hand Severity: moderate Quality: burning Pain Consistency: constant Relieving factors: none Exacerbating factors: other ( Exposure to sun) Associated symptoms: denies other symptoms Treatments prior to arrival: none Related Data Home Medications ?Medication ?Instructions ?Recorded ?Confirmed ?Last Taken ?Type lurasidone 20 mg tablet (Latuda) 20 mg PO HS 05/06/20 08/14/24 1 Day Ago History ~05/18/20 fluoxetine 10 mg capsule 10 mg PO DAILY 05/28/24 08/14/24 Unknown History lisdexamfetamine 70 mg capsule 70 mg PO DAILY 05/28/24 08/14/24 Unknown History (Vyvanse) Allergies Allergy/AdvReac Type Severity Reaction Status Date / Time Penicillins Allergy Severe throat Verified 04/26/25 17:34 very scratchy/itchy, hives buspirone Allergy Intermediate Unknown Verified 04/26/25 17:34 metoclopramide (From Reglan) AdvReac Mild Weird Verified 04/26/25 17:34 feeling from it WATERMELON Allergy Severe Anaphylactic Uncoded 04/26/25 17:34 Shock Review of Systems Review of Systems: All systems reviewed & are unremarkable except as noted in HPI and below PMFSH Past Medical History Medical History Hx of opioid abuse Quit in 2018 URI (upper respiratory infection) Bipolar disorder Depression Anxiety Asthma Seizure Surgical History Surgical History delivery delivered H/O tubal ligation FH: cholecystectomy Family History Family History Mother Family history of mental disorder Depression Family history of migraine headaches Asthma Family history of alcoholism Family history of bipolar disorder Grandparent Family history of coronary artery disease Father Family history of obesity Hypertension Family history of alcoholism Social History Social History Social History: Caffeine weekly soda 1 Years smoked: 12 Smoking status: Former smoker Tobacco type: e-cigarettes/vaping Second hand tobacco smoke exposure: No Smoking end date: 09/24/23 Additional smoking assessment comments: QUIT CIGARETTES 1 MONTH AGO, NOW VAPES Alcohol intake: former Substance use: former Substance use type: marijuana Other substance usage details: USES MEDICAL MARIJUANA CURRENTLY Last use: 2 YEARS AGO Do You Feel Safe in your Home?: No Lack of Transportation: No Lack of Food: Sometimes True Current Housing: I Have Housing Concerned About Future Housing: No Difficulty Paying Gas/Electric Bills: No Difficulty Paying for Meds: No Currently Unemployed: No Difficulty w/ Childcare or Family Care: No Living arrangements: with family Occupation/Education: occupation Gender identity (if verbalized by the patient): Female Sexual Orientation (if Verbalized by the Patient): Straight or Heterosexual Spiritual care concerns: No Agree to blood products: Yes Exam Narrative: Vitals are stable Const: General: no acute distress Orientation/consciousness: patient oriented x3 Limitations: no limitations HENMT: Head: normal to inspection Ears: external ears normal Face/Nose/Sinus: Normal external nose present Face and sinus: normal facial exam Mouth: Yes Normal oral and palatal mucosa present Throat: posterior oropharynx normal Eyes: Conjunctivae: conjunctivae normal Pupils: Equal, round and reactive pupils present EOM: EOMs intact bilaterally Direct Ophthalmoscopy: no photophobia Neck: Neck: normal visual inspection, no lymphadenopathy and no meningeal signs Chest: Chest palpation & inspection: normal inspection of the chest Resp: Effort & Inspection: normal respiratory effort Auscultation: clear to auscultation bilaterally Cardio: Rate: regular rate Rhythm: regular rhythm GI: GI Palp: Yes Soft to palpation Auscultation: normal bowel sounds Other: no tenderness/ rigidity /rebound : General: Yes no CVA tenderness Back/Spine/Pelvis: Back: no CVA tenderness Skin: Other: erythematous rash with blisters and skin thickening over bilateral forearms. Neuro: General: patient oriented x3, moves all extremities, no meningeal signs, no focal motor deficits and CN's II-XI intact bilaterally Speech: normal speech Extrem: General: normal to inspection and no clubbing, cyanosis or edema Psych: Mental Status: mental status grossly normal Affect: normal affect Attitude: cooperative Course Course Emergency Course: Phototoxic versus photoallergic reaction to sunlight. Resembles second-degree burn small blisters these reactions have been chronic and come on every year during the summer. No new medication. advised the patient to follow up with primary care physician for a connective tissue workup view of the history of malar rash and Raynaud's phenomenon. Advised her to avoid sunlight. Would recommend calamine lotion. If the blisters break would recommend using bacitracin ointment. Vital Signs Vital signs: Vital Signs Temperature 36.6 C 04/26/25 17:30 Pulse Rate 88 04/26/25 17:30 Respiratory Rate 16 04/26/25 17:30 Blood Pressure 154/83 H 04/26/25 17:30 Pulse Oximetry 99 04/26/25 17:30 Oxygen Delivery Room Air 04/26/25 17:30 Temperature 36.6 C 04/26/25 17:30 Pulse Rate 88 04/26/25 17:30 Respiratory Rate 16 04/26/25 17:30 Blood Pressure 154/83 H 04/26/25 17:30 Pulse Oximetry 99 04/26/25 17:30 Oxygen Delivery Room Air 04/26/25 17:30 MDM - Skin/Abscess/Foreign Bdy MDM Narrative Medical decision making narrative: Sunburn photo dermatosis Differential Diagnosis Differential diagnosis: Likely viral exanthem Medical Records Attestation: I reviewed the patient's medical records. 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 Patient Disposition: Home Condition: Stable Instructions: Antibiotic Form, Phytophotodermatitis (ED) Additional Instructions: follow-up with dermatology follow-up with primary care physician for connective tissue workup Patient Language: Upper Sorbian Prescriptions: New bacitracin 500 unit/gram ointment 1 applic topical Q8H Qty: 28 0RF No Action fluoxetine 10 mg capsule 10 mg PO DAILY Wegovy 2.4 mg/0.75 mL pen injector 2.4 mg subcut WEEKLY Qty: 9 1RF lisdexamfetamine [Vyvanse] 70 mg capsule 70 mg PO DAILY lurasidone [Latuda] 20 mg tablet 20 mg PO HS Follow-up/Referrals: Chris Castillo MD [Primary Care Provider] - Time of Disposition: 18:00
--- OUTSIDE RECORDS SUMMARY | 2025-04-26 18:10 | XMS_ITS | Encounter Summary ---
Author Organization [facility] Address [facility] [place] [address] Care Team Providers Care Physician Asst Name Role Phone Christine Staton Primary Care Provider [phone] Encounter Details Date Type Department Care Team (Late st Contact Info) Description 03/02/2019 Abstract SFL CONVERSION [address] [place] [address] , Generic Conversion, Social History Tobacco Use Types Packs/Day Years Used Date Smoking Tobacco: Never Assessed Comments Unknown Sex and Gender Information Value Date Recorded Sex Assigned at Not on file Legal Sex Female 7:54 PM CDT Gender Identity Not on file Sexual Orientation Not on file documented as of this encounter Plan of Treatment Not on file documented as of this encounter Visit Diagnoses Not on filedocumented in this encounter Care Teams Physician Asst Relationship Specialty Start Date End Date Christine Staton PA [address] [place] [address] PCP - General PHYSICIAN SOCIAL SCIENCE INSTRUCTOR 11/29/23 documented as of this encounter
--- OUTSIDE RECORDS SUMMARY | 2025-04-26 18:10 | XMS_ITS | Clinical Summary ---
Author Organization [facility] Address [address] [place] [address] Care Team Providers Care Mail Handler Name Role Phone Christine Staton Primary Care Provider [phone] Allergies Active Allergy Reactions Criticality Noted Date Comments Penicillins Unknown 01/05/2017 Bupropion Swelling 11/30/2023 Medications * This document contains information received from the source organization and may not represent a complete record from that organization. LATUDA 20 MG tablet Take 1 tablet (20 mg total) by mouth. Active VYVANSE 50 MG capsule Take 1 capsule (50 mg total) by mouth every morning. 11/27/2023 Active FLUoxetine (PROZAC) 10 MG capsule Take 1 capsule (10 mg total) by mouth daily. 10/22/2023 Active Active Problems No known active problems Social History Tobacco Use Types Packs/Day Years Used Date Smoking Tobacco: Former Cigarettes Smokeless Tobacco: Never Alcohol Use Standard Drinks/Week Comments Not Currently 0 (1 standard drink = 0.6 oz pur e alcohol) Comments Unknown Sex and Gender Information Value Date Recorded Sex Assigned at Not on file Legal Sex Female 7:54 PM CDT Gender Identity Not on file Sexual Orientation Not on file Last Filed Vital Signs Vital Sign Reading Time Taken Comments Blood Pressure - - Pulse - - Temperature - - Respiratory Rate - - Oxygen Saturation - - Inhaled Oxygen Concentration - - Weight 132 kg (291 lb) 11/30/2023 3: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 MECHANIC Height 172.7 cm (5' 8) 11/30/2023 3: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 MECHANIC Body Mass Index 44.25 11/30/2023 3: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 MECHANIC Plan of Treatment Health Maintenance Due Date Last Done Comments Cervical Cancer Screening Mathew ruiz Smear (Age 30 to 64) Every 3 Years 1989 Annual Physical 1992 Hepatitis C 2007 DTaP, Tdap and Td Vaccines ( 1 - Tdap) 2008 Hepatitis B Vaccines (1 of 3 - 19+ 3-dose series) 2008 HPV Vaccines (1 - 3-dose SCD M series) 2016 Cervical Cancer Screening Pa p with HPV Testing (Age 30 to 64) Every 5 Years 2019 Cervical Cancer Screening wi th HPV 2019 COVID-19 Vaccine (3 - 2023-2 5 season) 2024 04/12/2021, 02/09/2021 Pneumococcal Vaccine: Pediatrics (0 to 5 Years) and At-Risk Patients (6 to 49 Years) Aged Out 10/09/2012 No longer eligible b ased on patient's age to complete this topic Meningococcal B Vaccine Aged Out No l onger eligible based on patient's age to complete this topic Meningococcal Vaccine Aged Out No janusz cale eligible based on patient's age to complete this topic RSV Immunizations Under 20 Months Aged Out No longer eligible b ased on patient's age to complete this topic Insurance MEDICARE AET Care Teams Mail Handler Relationship Specialty Start Date End Date Christine Staton PA [address] [place] [address] PCP - General PHYSICIAN RN REHAB 11/29/23
--- OUTSIDE RECORDS SUMMARY | 2025-04-26 18:10 | XMS_ITS | Clinical Summary ---
Author Organization [facility] Address [address] [place] [address] Care Team Providers Care Pillowcase Folder Name Role Phone Unavailable Primary Care Provider Unavailabl e Source Comments [facility],non-owned Affiliates and Associated Physician Practices is amultiple site organization consisting of ambulatory clinics and hospital sitesin [place], [place], [place] and [place]. This disclosure is being madepursuant to the Care Everywhere program and may not contain all information available regarding this patient. Last updated 18.[facility] Allergies Active Allergy Reactions Criticality Noted Date [...]
[2025-04-26 18:11] VITALS: BP 154/83; PULSE 88; RESP 16; TEMP 36.6; O2SAT 99
== END 2025-04-26 18:11 | disposition home or self-care (01) ==
PROVIDERS: Emergency Provider Internal Medicine Critical Care Medicine; PCP Internal Medicine
DX: L56.8 Other specified acute skin changes due to ultraviolet radiation (principal); Z87.891 Personal history of nicotine dependence; X32.XXXA Exposure to sunlight, initial encounter
CPT/HCPCS: 99283

== ENCOUNTER 2025-04-30 13:59 | Outpatient (CLI) | payer OTHER, MEDICARE, SELFPAY ==
--- OUTSIDE RECORDS SUMMARY | 2025-04-30 14:08 | XMS_ITS | Clinical Summary ---
Author Organization [facility] Address [address] [place] [address] Care Team Providers Care Electrotherapist Name Role Phone Christine Staton Primary Care Provider [phone] Allergies Active Allergy Reactions Criticality Noted Date [...] 132 kg (291 lb) 11/30/2023 3:23 PM BIAS CUTTING MACHINE OPERATOR VERTICAL Height 172.7 cm (5' 8) 11/30/2023 3:23 PM BIAS CUTTING MACHINE OPERATOR VERTICAL Body Mass Index 44.25 11/30/2023 3:23 PM BIAS CUTTING MACHINE OPERATOR VERTICAL Plan of Treatment Health Maintenance Due Date [...] this topic Insurance MEDICARE AET Care Teams Electrotherapist Relationship Specialty Start Date End Date Christine Staton PA [address] [place] [address] PCP - General PHYSICIAN SEAT SCOOPER MACHINE 11/29/23
--- OUTSIDE RECORDS SUMMARY | 2025-04-30 14:08 | XMS_ITS | Encounter Summary ---
Author Organization [facility] Address [facility] [place] [address] Care Team Providers Care Shoe Repair Cobbler Name Role Phone Christine Staton Primary Care Provider [phone] Encounter Details Date Type Department Care Team (Late st Contact Info) Description 03/02/2019 Abstract SFL CONVERSION [address] [place] [address] , Generic Conversion, Social History Tobacco Use [...] on filedocumented in this encounter Care Teams Shoe Repair Cobbler Relationship Specialty Start Date End Date Christine Staton PA [address] [place] [address] PCP - General PHYSICIAN GLOBAL MARKETING INTERN 11/29/23 documented as of this encounter
--- OUTSIDE RECORDS SUMMARY | 2025-04-30 14:08 | XMS_ITS | Clinical Summary ---
Author Organization [facility] [employer] Address [address] [place] [address] Care Team Providers Care Research/Program Director Name Role Phone Unavailable Primary Care Provider Unavailabl e Source Comments [facility],non-owned Affiliates and Associated Physician Practices is amultiple site organization consisting of ambulatory clinics and hospital sitesin [place], [place], [place] and [place]. This disclosure is being madepursuant to the Care Everywhere program and may not contain all information available regarding this patient. Last updated 18.[facility] [employer] Allergies Active Allergy Reactions Criticality Noted Date Comments Nsaids Unknown 01/05/2017 Penicillins 01/05/2017 Medications * Be aware that medications may not be up to date on this document. Always verify current medications with the patient. lurasidone (LATUDA) [...]
[2025-04-30 18:02] LABS: Add Urine Microscopic? NO; Appearance Urine Clear (Clear); Glucose Urine UA Negative (Negative); Leukocyte Esterase Ur Negative LEU/UL (Negative); Nitrate Urine Negative (Negative); Specific Grav Ur 1.003 (1.001-1.035)
[2025-04-30 18:06] LABS: Hematocrit 43.5 % (37.0-47.0); Hemoglobin 14.4 g/dL (12.0-15.0); Immature Granulocyte Percent A 0.3 % (0-0.5); Lymphocytes Absolute Auto 2.72 K/mm3 (0.9-3.2); Mean Corpuscular HGB Conc 33.1 g/dl (32-36); Mean Corpuscular Hemoglobin 30.4 pg (26-34); Mean Corpuscular Volume 92.0 fl (80-100); Nucleated Red Blood Cells Absolute Auto 0.000 K/mm3 (0.0-0.012); Nucleated Red Blood Cells Perc 0.0 % (0.0-0.2); Platelet Count Result 394 k/mm3 (150-375); Red Blood Count 4.73 M/mm3 (4.2-5.4); White Blood Count 11.9 K/mm3 (4.5-10.0)
[2025-04-30 18:16] LABS: Alanine Aminotransferase 21 U/L (6-35); Albumin Level 4.6 g/dL (3.5-5.1); Alkaline Phosphatase 74 U/L (38-126); Anion Gap 11 mmol/L (4-12); Aspartate Amino Transferase 36 U/L (14-36); Bilirubin,Total 1.0 mg/dL (0.2-1.3); Blood Urea Nitrogen 11 mg/dL (7-17); Calcium 10.0 mg/dL (8.4-10.2); Carbon Dioxide 27 mmol/L (22-30); Chloride 100 mmol/L (98-107); Estimated Glomerular Filt Rate > 60; Glucose 97 mg/dL (65-110); Potassium 4.3 mmol/L (3.4-5.0); Sodium 138 mmol/L (137-145); Total Protein 7.8 g/dL (6.3-8.2)
[2025-04-30 18:48] LABS: Thyroid Stimulating Hormone 2.160 uIU/mL (0.465-4.680)
[2025-05-02 11:08] LABS: ANA by IFA Rfx Titer/Pattern Positive (.)
== END 2025-04-30 14:00 | disposition home or self-care (01) ==
LOC: ANHGOSHLAB 14:01
PROVIDERS: PCP Internal Medicine; Visit Provider Nurse Practitioner
DX: R21 Rash and other nonspecific skin eruption (principal); L30.9 Dermatitis, unspecified; R53.83 Other fatigue; M25.50 Pain in unspecified joint; R82.90 Unspecified abnormal findings in urine
CPT/HCPCS: 36415; 80053; 81003; 84443; 85025; 85652; 86038; 86430

== ENCOUNTER 2025-07-10 14:01 | Outpatient (CLI) | payer OTHER, MEDICARE, SELFPAY ==
--- OUTSIDE RECORDS SUMMARY | 2025-07-10 16:07 | XMS_ITS | Encounter Summary ---
Author Organization [facility] Address Counts include [address] beds at the [facility] [place] [address] Care Team Providers Care State Superintendent Of Schools Name Role Phone Christine Staton Primary Care Provider [phone] Encounter Details Date Type Department Care Team (Late st Contact Info) Description 03/02/2019 Abstract SFL CONVERSION [address] [place] [address] , Generic Conversion, Social History Tobacco Use [...] on filedocumented in this encounter Care Teams State Superintendent Of Schools Relationship Specialty Start Date End Date Christine Staton PA [address] [place] [address] PCP - General PHYSICIAN TURF FARM WORKER 11/29/23 documented as of this encounter
--- OUTSIDE RECORDS SUMMARY | 2025-07-10 16:07 | XMS_ITS | Clinical Summary ---
Author Organization [facility] Address [address] [place] [address] Care Team Providers Care Turbinated Bone Grinder Name Role Phone Christine Staton Primary Care Provider [phone] Allergies Active Allergy Reactions Criticality Noted Date [...] 132 kg (291 lb) 11/30/2023 3:23 PM EMERGENCY MEDICINE NURSE PRACTITIONER Height 172.7 cm (5' 8) 11/30/2023 3:23 PM EMERGENCY MEDICINE NURSE PRACTITIONER Body Mass Index 44.25 11/30/2023 3:23 PM EMERGENCY MEDICINE NURSE PRACTITIONER Plan of Treatment Health Maintenance Due Date [...] th HPV 2019 COVID-19 Vaccine (3 - 2024-2 6 season) 2025 04/12/2021, 02/09/2021 Influenza Adult (#1) 2025 07/09/2020, 06/24/2019, 10/09/2012 Pneumococcal Vaccine: Pediatrics (0 to 5 Years) [...] age to complete this topic Insurance [place] [address] Care Teams Turbinated Bone Grinder Relationship Specialty Start Date End Date Christine Staton PA [address] [place] [address] PCP - General PHYSICIAN GRINDING WHEEL FACER 11/29/23
--- OUTSIDE RECORDS SUMMARY | 2025-07-10 16:07 | XMS_ITS | Encounter Summary ---
Author Organization [facility] Address [address] [place] [address] Care Team Providers Care Steel Tester Name Role Phone Jimena Boswell Primary Care Provider [phone] Encounter Details Date Type Department Care Team (Late st Contact Info) Description 06/18/2025 Results Follow-Up [facility] Medical [facility] - Rheumatology [address], [address] [place] [address] Jeremias Mendes DO [address] [place] [address] Social History Tobacco Use Types Packs/Day Years Used Date Smoking Tobacco: Every Day Cigarettes Alcohol Use Standard Drinks/Week Comments No 0 (1 standard drink = 0.6 oz pur e alcohol) PHQ-2 Answer Date Recorded Patient Health Questionnaire-2 Score 0 06/16/2025 Comments No Sex and Gender Information Value Date Recorded Sex Assigned at Not on file Legal Sex Female 7:36 AM CDT Gender Identity Not on file Sexual Orientation Not on file documented as of this encounter Plan of Treatment Not on file documented as of this encounter Visit Diagnoses Not on filedocumented in this encounter Care Teams Steel Tester Relationship Specialty Start Date End Date Jmiena Boswell APRN-CNP [address] [place] [address] PCP - General Nurse Practitioner 06/16/25 documented as of this encounter
--- OUTSIDE RECORDS SUMMARY | 2025-07-10 16:07 | XMS_ITS | Clinical Summary ---
Author Organization [facility] Address [address] [place] [address] Care Team Providers Care Air Crew Member Name Role Phone NicoleJimena park Paula GANG MINER-[employer] OPERATIONS MANAGER Primary Care Provider [phone] Source Comments [facility],non-owned Affiliates and Associated Physician Practices is amultiple site organization consisting of ambulatory clinics and hospital sitesin [place], [place], [place] and [place]. This disclosure is being madepursuant to the Care Everywhere program and may not contain all information available regarding this patient. Last updated 18.[facility] Allergies Active Allergy Reactions Criticality Noted Date Comments Bupropion Swelling 11/30/2023 Buspirone Other High 04/26/2025 Citrullus Vulgaris Anaphylaxis High 04/26/2025 Metoclopramide Psychiatric Medium 04/26/2025 Nsaids Unknown 01/05/2017 Penicillins Other,Unknown High 01/05/2017 difficulty breathing Medications * Be aware that medications may not be up to date on this document. Alwaysverify current medications with the patient. lurasidone (LATUDA) 40 MG tablet Take 40 mg by mouth daily with breakfast Active raNITIdine (ZANTAC) 150 MG capsule Take 150 mg by mouth 2 times daily Active FLUoxetine (PROzac) 10 MG capsule 5 Active cycloSPORINE (Restasis) 0.05 % ophthalmic suspension 2 times daily Activ e propranolol ER 24hr (Inderal LA) 60 MG capsule Take 1 (one) capsule by mouth once daily 5 Active topiramate (TOPAMAX) 200 MG tablet Take 200 mg by mouth 2 times daily 06/16/20 Discontinu ed(List Clean-Up) LamoTRIgine (LAMICTAL PO) Take 50 mg by mouth 06/16/20 Discontinu ed(List Clean-Up) haloperidol (HALDOL) 2 MG tablet Take 2 mg by mouth at bedtime 06/16/20 Discontinu ed(List Clean-Up) clomiPRAMINE (ANAFRANIL) 50 MG capsule Take 100 mg by mouth at bedtime 06/16/20 Discontinu ed(List Clean-Up) diazePAM (VALIUM) 10 MG tablet Take 10 mg by mouth 4 times daily 06/16/20 Discontinu ed(List Clean-Up) Active Problems Problem Noted Date Diagnosed Date Rash 06/16/2025 Overview (06/16/2025): Photosensitive rash (reviewed multiple images). Does not appear to be a classic malar facial rash. Consideration of acute or subacute lupus rash, bullous lupus. Assessment & Plan (06/16/2025 2:20 PM CDT): Photosensitive rash (reviewed multiple images). Does not appear to be a classic malar facial rash. Consideration of acute or subacute lupus rash, bullous lupus. With the finding of a low positive anti-nuclear antibody (LILIA) I have recommended further lab testing (see orders). Would strongly encourage punch skin biopsy for any recurrent active rash for dermatopathology including immunofluorescence staining with tissue specimen to be obtained by primary care clinic or local dermatology. Positive LILIA (antinuclear antibody) 1:80 speckle d 06/16/2025 Assessment & Plan (06/16/2025 2:18 PM CDT): By itself, a positive LILIA test does not indicate the presence of an autoimmune disease or the need for therapy. Approximately 15% of the normal population will have a positive LILIA test;and can also be seen in other conditions, such as thyroid diseases, viral infections or caused by some medications. The finding of a positive antinuclear antibody (LILIA), especially with a low pretest probability for an associated connective tissue disease, is currently considered to be of undetermined clinical significance (often referred to as a false positive result) with her historical elements/symptoms reviewed, current clinical examination findings, and additional available laboratory results reviewed, regarding this result not consistent with a specific diagnosis of a defined systemic connective tissue disease including systemic lupus erythematosus or systemic inflammatory rheumatic disorder by [employer] [place] (ACR) diagnostic classification criteria at this time. Luz Marina Garcia lacks features of any systemic autoimmune LILIA-related connective tissue disease. LILIA positivity is present in up to 30% of the normal population . Since the prevalence of SLE is only ~0.1%, most positive LILIA results can be attributed to other etiologies or considered represent f alse-positive results. LILIA positivity increases in prevalence with female gender, older age, and numerous other conditions. Antinuclear antibody overview: A test for antinuclear antibodies (LILIA) is common in people who are suspected of having an autoimmune or systemic connective tissue disease disorder. Antibodies are proteins that are made as part of the immune response. The result of an LILIA test may be used in 1 or more ways: To aid in diagnosis of an autoimmune or connective tissue disease disorder, to rule out autoimmune or connective tissue disease disorders in people presenting only with a few symptoms, to measure disease activity, and order to determine the specific type of disease that affects the patient. Of people with the following disorders or characteristics may have positive LILIA test results including systemic lupus erythematosus, scleroderma, mixed connective tissue disease, polymyositis/dermatomyositis, rheumatoid arthritis, rheumatoid vasculitis, Sjogren syndrome, drug-induced lupus, discoid lupus, possibly articular juvenile chronic idiopathic arthritis or ANCA related vasculitic syndromes. In addition, some people with autoimmune diseases that affect the gastrointestinal tract, thyroid gland, liver, or lung (including Bhumi's thyroiditis, Graves disease, autoimmune hepatitis, primary biliary cirrhosis, primary autoimmune cholangitis, inflammatory bowel disease including Crohn's disease or ulcerative colitis, and idiopathic pulmonary arterial hypertension) can have a positive LILIA test. Additionally, certain chronic infectious diseases, such as mononucleosis/EBV, hepatitis C virus infection, subacute bacterial endocarditis, tuberculosis, lymphoproliferative diseases, and human immunodeficiency virus (HIV) may also produce a positive LILIA test. As such, a positive LILIA does not necessarily mean that the person has lupus or another systemic connective tissue disease disorder. As noted earlier, many healthy people may have a positive LILIA test. The LILIA test is said to be a f alse positive test result when a person test positive but does not have any other features of autoimmune disease. This situation occurs more often in women and elderly people especially when tested in individuals with a low pretest probability for systemic lupus erythematosus or other systemic rheumatic connective tissue disease. Certain medications also may increase the chance of having a positive LILIA test which may or may not represent a drug-induced lupus type syndrome. Depending on the symptoms that led to the initial LILIA screening testing may be necessary and ordered for further evaluation may or may not be recommended for 1 or more of the disorders that can be associated with a positive LILIA. Raynaud's phenomenon without gangrene 06/16/2025 Encounters Date Type Department Care Team Description 06/18/2025 Results Follow-Up [facility] [address] [place] [address], [address] [place] [address] Jeremias Mendes DO 06/16/2025 2:00 PM CDT Office Visit [facility] [address] [place] [address], [address] [place] [address] Jeremias Mendes DO Positive LILIA (antinuclear antibody) 1:80 speckled (Primary Dx); Rash; Polyarthralgia; History of multiple miscarriages; Raynaud's phenomenon without gangrene 05/05/[address], [address] [place] [address] Jeremias Mendes DO Referral 05/02/2025 Transcribe Orders [facility] [address] [place] [address], [address] [place] [address] [facility] Rash ; Polyarthralgia from Last 3 Months Social History Tobacco Use Types Packs/Day Years [...] Sign Reading Time Taken Comments Blood Pressure 108/60 06/16/2025 1:29 PM CDT Pulse 74 06/16/2025 1:29 PM CDT Temperature 36.7 C (98 F) 06/16/2025 1:29 PM CDT Respiratory Rate 16 06/16/2025 1:29 PM CDT Oxygen Saturation 98% 06/16/2025 1:29 PM CDT Inhaled Oxygen Concentration - - Weight 132.9 kg (293 lb) 06/16/2025 1:29 PM CDT Height 175.3 cm (5' 9) 01/05/2017 8:52 AM CDT Body Mass Index 43.27 01/05/2017 8:52 AM CDT Plan of Treatment Health Maintenance Due Date Last Done Comments MEDICARE AWV 12 MONTHS 1989 HIV SCREENING 2004 HEPATITIS C SCREENING 07/22/2007 DTAP/TDAP/TD VACCINES (1 - Tdap) 2008 HEPATITIS B VACCINE (1 of 3 - 19+ 3-dose series) 2008 PNEUMOCOCCAL VACCINE (1 of 2 - PCV) 2008 PAP SMEAR 2010 HPV VACCINE (1 - 3-dose SCDM series) 2016 COVID-19 VACCINE (2 - 2024-2 6 season) 2025 02/09/2021 INFLUENZA VACCINE (#1) 2025 06/24/2019 ZOSTER VACCINE (1 of 2) 2039 DEPRESSION SCREENING Completed 06/16/2025 HIB VACCINE Aged Out No longer eligi ble based on patient's age to complete this topic MENINGOCOCCAL (Group B) VACC INE SHARED DECISION-MAKING Aged Out No longer eligibl e based on patient's age to complete this topic MENINGOCOCCAL GROUPS A/C/Y/W VACCINE Aged Out No longer eligible b ased on patient's age to complete this topic Procedures Procedure Name Priority Date/Time Associated Diagnosis Comments CARDIOLIPIN ANTIBODY IGA/IGG/IGM PANEL Routine 06/16/2025 3:20 PM CDT Positive LILIA (antinuclear antibody) 1:80 speckled History of multiple miscarriages COMPLEMENT C4 Routine 06/16/2025 3:20 PM CDT Positive LILIA (antinuclear antibody) 1:80 speckled COMPLEMENT C3 Routine 06/16/2025 3:20 PM CDT Positive LILIA (antinuclear antibody) 1:80 speckled LILIA PANEL COMPREHENSIVE Routine 06/16/2025 3:20 PM CDT Positive LILIA (antinuclear antibody) 1:80 speckled AMB REFERRAL TO RHEUMATOLOGY Routine 06/16/2025 2:33 PM CDT Rash Polyarthralgia from Last 3 Months Results * CARDIOLIPIN ANTIBODY IGA/IGG/IGM PANEL (06/16/2025 3:20 PM CDT) Pathologist [facility] Cardiolipin Antibody IgA <2.0 APL-U/mL [facility] Comment: Value Interpretation ----- < 20.0 Antibody not detected > or = 20.0 Antibody detected Cardiolipin Antibody IgG <2.0 GPL-U/mL [facility] Comment: Value Interpretation ----- < 20.0 Antibody not detected > or = 20.0 Antibody detected Cardiolipin Antibody IgM 6.9 MPL-U/mL [facility] Comment: Value Interpretation ----- < 20.0 Antibody not detected > or = 20.0 Antibody detected The antiphospholipid antibody syndrome (APS) is a clinical-pathologic correlation that includes a clinical event (e.g. arterial or venous thrombosis, morbidity) and persistent positive antiphospholipid antibodies (IgM, IgG Cardiolipin or b2GPI antibodies greater than the 99th percentile; or a lupus anticoagulant). International consensus guidelines for APS suggest waiting at least 12 weeks before retesting to confirm antibody persistence. The Systemic Lupus International Collaborating [facility] immunological classification criteria for systemic lupus erythematosus (SLE) include testing for isotype IgA, which has yet to be incorporated into APS criteria. Low level antiphospholipid antibodies may sometimes be detected in the setting of infection, drug therapy or aging. For additional information, please refer to http://education.Leo/faq/AHD638 (This link is being provided for informational/ educational purposes only.) REPORT COMMENT: FASTING:NO Test Performed at: [facility] [address] [place] [id number] BRET PERLA Blood BLOOD SPECIMEN / Unknown 06/16/2025 3:20 PM CDT 06/16/2025 3:20 PM CDT Jeremias Mendes DO LAB - SEROLOGY ORDERABLES Final Result [facility] [id number] [place] [address] * (ABNORMAL) LILIA PANEL COMPREHENSIVE (06/16/2025 3:20 PM CDT) LILIA Screen NEGATIVE NEGATIVE [facility] Comment: LILIA IFA is a first line screen for detecting the presence of up to approximately 150 autoantibodies in various autoimmune diseases. A negative LILIA IFA result suggests an LILIA-associated autoimmune disease is not present at this time, but is not definitive. If there is high clinical suspicion for Sjogren's syndrome, testing for anti-SS-A/Ro antibody should be considered. Anti-Juli-1 antibody should be considered for clinically suspected inflammatory myopathies. AC-0: Negative International Consensus on LILIA Patterns (https://doi.org/10.1515/uyoa-4798-5324) For additional information, please refer to http://education.B[employer] Tek.Jobaline/faq/OFA905 (This link is being provided for informational/ educational purposes only.) dsDNA Antibody 6(H) IU/mL [facility] Comment: IU/mL Interpretation < or = 4 Negative 5-9 Indeterminate > or = 10 Positive SCL-70 Antibody <1.0 NEG <1.0 NEG AI [facility] SM Antibody <1.0 NEG <1.0 NEG AI [facility] SM/[facility] Antibody <1.0 NEG <1.0 NEG AI [facility] Sjogren's Antibodies (SSA) <1.0 NEG <1.0 NEG AI [facility] Sjogren's Antibodies (SSB) <1.0 NEG <1.0 NEG AI [facility] Comment: Test Performed at: [place] [address] [address] [id number] MARIA GUADALUPE GOULD MD Blood BLOOD SPECIMEN / Unknown 06/16/2025 3:20 PM CDT 06/16/2025 3:20 PM CDT Jeremias Mendes DO LAB - SEROLOGY ORDERABLES Final Result Performing Organization Address [facility] Co de Phone Number [facility] [id number] [place] [address] * COMPLEMENT C4 (06/16/2025 3:20 PM CDT) Complement C4 29 15 - 57 mg/dL [facility] Comment: Test Performed at: [facility] [place] [address] [place] [address] MARIA GUADALUPE GOULD MD Blood BLOOD SPECIMEN / Unknown 06/16/2025 3:20 PM CDT 06/16/2025 3:20 PM CDT Jeremias Mendes DO LAB - SEROLOGY ORDERABLES Final Result Performing Organization Address [facility] [place] [address] * COMPLEMENT C3 (06/16/2025 3:20 PM CDT) Complement C3 164 83 - 193 mg/dL [facility] Comment: Test Performed at: [facility] [address] [place] [address] MARIA GUADALUPE GOULD MD Blood BLOOD SPECIMEN / Unknown 06/16/2025 3:20 PM CDT 06/16/2025 3:20 PM CDT Jeremias Mendes DO LAB - CHEMISTRY ORDERABLES Final Result Performing Organization Address [facility] [place] [place] [address] * AMB REFERRAL TO RHEUMATOLOGY (06/16/2025 2:33 PM CDT) us Jimena Boswell GANG MINER-ETHAN[employer] OPERATIONS MANAGER OUTPATIENT REFERRALS Amber l Result from Last 3 Months Insurance [employer] MEDICARE Care Teams Air Crew Member Relationship Specialty Start Date End Date Jimena Boswell APRN-LEONIE [address] [place] [address] PCP - General Nurse Practitioner 06/16/25
[2025-07-10 19:38] LABS: Hematocrit 40.8 % (37.0-47.0); Hemoglobin 13.8 g/dL (12.0-15.0); Immature Granulocyte Percent A 0.2 % (0-0.5); Immature Platelet Fraction Pct 5.1 % (0.9-11.2); Lymphocytes Absolute Auto 3.14 K/mm3 (0.9-3.2); Mean Corpuscular HGB Conc 33.8 g/dl (32-36); Mean Corpuscular Hemoglobin 30.5 pg (26-34); Mean Corpuscular Volume 90.1 fl (80-100); Nucleated Red Blood Cells Absolute Auto 0.000 K/mm3 (0.0-0.012); Nucleated Red Blood Cells Perc 0.0 % (0.0-0.2); Platelet Count Result 313 k/mm3 (150-375); Red Blood Count 4.53 M/mm3 (4.2-5.4); White Blood Count 12.4 K/mm3 (4.5-10.0)
[2025-07-10 20:03] LABS: Schistocytes None Seen
[2025-07-10 23:14] LABS: Anion Gap 9 mmol/L (4-12); Blood Urea Nitrogen 14 mg/dL (7-17); Calcium 9.4 mg/dL (8.4-10.2); Carbon Dioxide 25 mmol/L (22-30); Chloride 101 mmol/L (98-107); Estimated Glomerular Filt Rate > 60; Glucose 90 mg/dL (65-110); Potassium 4.2 mmol/L (3.4-5.0); Sodium 135 mmol/L (137-145)
== END 2025-07-10 14:02 | disposition home or self-care (01) ==
LOC: ANHGOSHLAB 14:02
PROVIDERS: PCP Internal Medicine; Visit Provider Nurse Practitioner
DX: R07.9 Chest pain, unspecified (principal); R06.00 Dyspnea, unspecified; E55.9 Vitamin D deficiency, unspecified
CPT/HCPCS: 36415; 80048; 82306; 85025; 85055